=== PATIENT | female | born 1990 | race Asian ===

== ENCOUNTER 2017-07-27 15:47 | Outpatient (CLI) | payer OTHER ==
[2017-07-27 16:25] LABS: #Basophils 0.1 thou/uL (0.0-0.2); #Eosinphils 0.3 thou/uL (0.0-0.7); #Lymphocytes 2.7 thou/uL (1.20-3.40); #Monocytes 0.4 thou/uL (0.11-0.59); #Neutrophils 3.8 thou/uL (1.40-6.50); %Basophils 1.1 % (0.0-1.0); %Eosinophils 4.6 % (0.0-10.0); %Lymphocytes 37.5 % (21.0-51.0); %Monocytes 4.9 % (0.0-10.0); Hemoglobin 14.2 g/dL (12.0-16.0); Mean Corpuscular HGB CONC 33.7 g/dL (32.0-36.0); Mean Corpuscular Hemoglobin 31.2 pg (27.0-31.0); Mean Corpuscular Volume 92.4 fl (81.0-99.0); Mean Platelet Volume 6.4 fL (7.4-10.4); Platelet Count 290 thou/uL (130-400); Red Blood Cell (RBC) Count 4.56 mill/uL (4.20-5.40); White Blood Cell (WBC) Count 7.3 thou/uL (4.8-10.8)
[2017-07-27 16:53] LABS: BHCG - Serum Negative (NEGATIVE); Pregs Control Background? CLEAR/WHITE (CLR/WHITE); Pregs Control Bar Appear? YES (CONTROL BAR)
== END 2017-07-27 15:48 | disposition home or self-care (01) ==
LOC: LABBT 15:47
PROVIDERS: ATTEND Orthopaedic Surgery Hand Surgery
DX: Z01.812 Encounter for preprocedural laboratory examination (principal); R22.31 Localized swelling, mass and lump, right upper limb
CPT/HCPCS: 84703; 85025; 85652

== ENCOUNTER 2017-07-28 08:26 | Day surgery (SDC) | payer OTHER ==
[2017-07-27 16:08] VITALS: BMI 30.4
[2017-07-28] MEDS ORDERED: CEFAZOLIN/Water 2 GM/20 ML SYRINGE ONE (09:32)
[2017-07-28] MEDS ORDERED: Bacitracin Zinc Ointment 30 gm TUBE ONE (12:34)
[2017-07-28] MEDS ORDERED: Betamet Acet/Betamet Na Ph 30 MG/5 ML VIAL ONE (12:34)
[2017-07-28] MEDS ORDERED: Bupivacaine PF 0.5% 30 ML VIAL ONE (12:34)
[2017-07-28] MEDS ORDERED: Fentanyl 100 MCG/2 ML VIAL ONE (12:37)
[2017-07-28] MEDS ORDERED: Midazolam HCl 2 mg/2 ml Vial ONE (12:45)
[2017-07-28] MEDS ORDERED: Ketorolac Tromethamine 30 MG/ML VIAL ONE ×2 (14:10→16:46)
[2017-07-28] MEDS ORDERED: Ondansetron HCl/PF 4 MG/2 ML Vial ONE (16:46)
[2017-07-28] MEDS ORDERED: Lidocaine 1% PF 5 ML VIAL ONE (16:46)
[2017-07-28] MEDS ORDERED: Dexamethasone 20 MG/5 ML VIAL ONE (16:46)
[2017-07-28] MEDS ORDERED: PROPOFOL 200 MG/20 ML VIAL ONE (16:46)
--- NOTE | 2017-08-01 13:01 | OP ---
DATE OF SURGERY: 07/28/2017 PREOPERATIVE DIAGNOSIS: [place] kam foreign body with granuloma, right long finger. FINDINGS: 1. Right middle finger cactus kam, 2 cm long with no infection, but a granuloma tracked over the pa lmar aspect of the digit. 2. Granuloma cavity, approximately 1.5 cm x 3 mm. PROCEDURE PERFORMED: 1. Excision of cactus kam, right middle finger. 2. Removal of the granuloma, right middle finger. SPECIMEN: None. TOURNIQUET TIME: 5 minutes. ESTIMATED BLOOD LOSS: 2 mL. INDICATION: [place] kam barely palpable in the operating room, but felt to be present based on histo ry and physical exam and it was painful. SURGEON: Michael Payton MD ANESTHESIA: General LMA technique by [place] Anesthesia augmented by 10 mL 0.5% Marcaine metacarpop halangeal joint block level. DESCRIPTION OF PROCEDURE: After successful general LMA technique, the limb was prepped and draped. A time out was done appropriately. The limb was exsanguinated, tourniquet inflated to 250 mm pressur e and then we injected the metacarpophalangeal joint level of the middle phalanx to give a block. We waited 2 minutes and then made a zigzag Bonnie incision centered over the mass area and then dissec liset down to skin, subcutaneous tissue, and there was a mass. We then dissected out the mass along wi th a granuloma cavity incised in description as listed above and "findings". Released the tourniquet, obtained hemostasis. Irrigated the area with 300 mL normal saline on bulb s yringe pressure and then closed the wound with simple nylon sutures x4. The patient left the operati ng room without evidence of anesthetic operative complication and a bulky dressing.
== END 2017-07-28 14:55 | disposition home or self-care (01) ==
LOC: SDC 08:26
PROVIDERS: ATTEND Orthopaedic Surgery Hand Surgery
PROC: 0JBJ0ZZ Excision of Right Hand Subcutaneous Tissue and Fascia, Open Approach (ICD-10-PCS; principal; 2017-07-28)
DX: M60.241 Foreign body granuloma of soft tissue, not elsewhere classified, right hand (principal); F41.9 Anxiety disorder, unspecified; F17.210 Nicotine dependence, cigarettes, uncomplicated; Z18.89 Other specified retained foreign body fragments; Z79.899 Other long term (current) drug therapy; W60.XXXA Contact with nonvenomous plant thorns and spines and sharp leaves, initial encounter
CPT/HCPCS: 88300; J0131; J0702; J1100; J1885; J2001; J2250; J2405; J2704; J3010; S0020

== ENCOUNTER 2018-04-05 19:46 | Emergency (ER) | payer OTHER, SELFPAY | END 2018-04-05 20:42 | disposition home or self-care (01) | LOC: ERS 19:46 | DX: J30.9 Allergic rhinitis, unspecified (principal); Z87.891 Personal history of nicotine dependence | CPT/HCPCS: 87081; 87430; 99283 ==

== ENCOUNTER 2018-06-10 01:58 | Emergency (ER) | payer SELFPAY ==
[2018-06-10 02:35] LABS: Pregnancy Test - Urine (BHCG) POSITIVE (Negative); Pregu Control Background? CLEAR/WHITE (CLR/WHITE); Pregu Control Bar Appear? YES (CONTROL BAR)
[2018-06-10 02:38] LABS: Bilirubin Small (Negative); Blood, Urine Negative (Negative); Clarity CLEAR (Clear); Glucose, Urine (Dipstick) Negative (Negative); Leukocyte Negative (Negative); Nitrite Negative (Negative); Protein, Urine (Dipstick) Trace mg/dL (Neg-Trace); Specific Gravity, Urine 1.032 (1.002-1.036)
[2018-06-10 02:40] LABS: Specific Gravity 1.032 (1.002-1.036)
== END 2018-06-10 04:16 | disposition home or self-care (01) ==
LOC: ERS 01:58
DX: O99.89 Other specified diseases and conditions complicating pregnancy, childbirth and the puerperium (principal); R10.9 Unspecified abdominal pain; O99.341 Other mental disorders complicating pregnancy, first trimester; F41.9 Anxiety disorder, unspecified; F31.9 Bipolar disorder, unspecified; F43.10 Post-traumatic stress disorder, unspecified; F90.9 Attention-deficit hyperactivity disorder, unspecified type; F17.210 Nicotine dependence, cigarettes, uncomplicated; Z79.899 Other long term (current) drug therapy; Z3A.01 Less than 8 weeks gestation of pregnancy
CPT/HCPCS: 36415; 81003; 81025; 84702

== ENCOUNTER 2018-06-20 19:44 | Emergency (ER) | payer SELFPAY ==
[2018-06-20 21:52] LABS: #Eosinphils 0.3 thou/uL (0.0-0.7); #Lymphocytes 2.4 thou/uL (1.20-3.40); #Monocytes 0.4 thou/uL (0.11-0.59); #Neutrophils 3.5 thou/uL (1.40-6.50); %Basophils 0.6 % (0.0-1.0); %Eosinophils 4.1 % (0.0-10.0); %Lymphocytes 36.4 % (21.0-51.0); %Monocytes 5.8 % (0.0-10.0); %Neutrophils 53.1 % (42.0-75.0); Hemoglobin 12.8 g/dL (12.0-16.0); Mean Corpuscular HGB CONC 33.3 g/dL (32.0-36.0); Mean Corpuscular Hemoglobin 30.2 pg (27.0-31.0); Mean Corpuscular Volume 90.5 fL (78.0-98.0); Mean Platelet Volume 7.4 fL (7.4-10.4); Platelet Count 304 thou/uL (130-400); RBC Distribution Width 11.2 % (11.5-14.5); Red Blood Cell (RBC) Count 4.23 mill/uL (4.20-5.40); White Blood Cell (WBC) Count 6.5 thou/uL (4.8-10.8)
[2018-06-20 21:53] LABS: Bilirubin Negative (Negative); Blood, Urine Negative (Negative); Clarity CLOUDY (Clear); Glucose, Urine (Dipstick) Negative (Negative); Leukocyte Small (Negative); Nitrite Negative (Negative); Protein, Urine (Dipstick) Negative (Neg-Trace); Specific Gravity, Urine 1.015 (1.002-1.036); pH, Urine 7.5 (5.0-9.0)
[2018-06-20 21:56] LABS: Bacteria/HPF Rare-Few HPF (None Seen); Pathc Cast-AUWi Flag 3.05 (0-2.49)
[2018-06-20 22:06] LABS: Hyaline Casts/LPF NONE SEEN LPF (0-3 Hyaline)
--- NOTE | 2018-06-20 23:12 | ULT ---
PELVIC ULTRASOUND: 06/20/18 INDICATION: Pelvic pain. A transabdominal and an endovaginal ultrasound of pelvis performed. FINDINGS: The uterus is minimally enlarged. There is evidence of a gestational sac within the endometrial cavit y. The gestational sac size would indicate a 5 week, 1 day gestation. No evidence of pole. No e vidence of yolk sac. The ovaries are identified and appear unremarkable. Color doppler and spectral analysis demonstrates flow to both ovaries. IMPRESSION: Tiny cyst in the endometrial cavity could represent a very early gestational sac which measurements w ould indicate a 5 week, 1 day gestation. This is too early to identify pole or yolk sac. Recomm end followup serial HCG levels and followup pelvic ultrasound as indicated to confirm a normal pregna ncy progression. Ectopic with pseudogestational sac is not excluded at this time. POS: [facility]
== END 2018-06-20 23:35 | disposition home or self-care (01) ==
LOC: ERS 19:44
DX: O46.91 Antepartum hemorrhage, unspecified, first trimester (principal); O23.41 Unspecified infection of urinary tract in pregnancy, first trimester; O99.341 Other mental disorders complicating pregnancy, first trimester; F41.9 Anxiety disorder, unspecified; F31.9 Bipolar disorder, unspecified; F43.10 Post-traumatic stress disorder, unspecified; F90.9 Attention-deficit hyperactivity disorder, unspecified type; O99.331 Smoking (tobacco) complicating pregnancy, first trimester; Z3A.01 Less than 8 weeks gestation of pregnancy
CPT/HCPCS: 36415; 76856; 81003; 81015; 84702; 85025; 86900; 86901; 87086; 87480; 87491; 87510; 87591; 87660

== ENCOUNTER 2018-06-24 19:04 | Emergency (ER) | payer SELFPAY ==
[2018-06-24 19:35] LABS: #Basophils 0.1 thou/uL (0.0-0.2); #Eosinphils 0.2 thou/uL (0.0-0.7); #Lymphocytes 2.1 thou/uL (1.20-3.40); #Monocytes 0.4 thou/uL (0.11-0.59); #Neutrophils 4.7 thou/uL (1.40-6.50); %Basophils 1.1 % (0.0-1.0); %Eosinophils 2.7 % (0.0-10.0); %Lymphocytes 28.4 % (21.0-51.0); %Monocytes 4.8 % (0.0-10.0); Hemoglobin 14.7 g/dL (12.0-16.0); Mean Corpuscular HGB CONC 33.2 g/dL (32.0-36.0); Mean Corpuscular Hemoglobin 30.2 pg (27.0-31.0); Mean Corpuscular Volume 90.8 fL (78.0-98.0); Platelet Count 335 thou/uL (130-400); RBC Distribution Width 11.2 % (11.5-14.5); Red Blood Cell (RBC) Count 4.89 mill/uL (4.20-5.40); White Blood Cell (WBC) Count 7.4 thou/uL (4.8-10.8)
[2018-06-24 19:54] LABS: Bilirubin Negative (Negative); Blood, Urine Large (Negative); Clarity CLOUDY (Clear); Glucose, Urine (Dipstick) Negative (Negative); Leukocyte Negative (Negative); Nitrite Negative (Negative); Protein, Urine (Dipstick) Negative (Neg-Trace); Specific Gravity, Urine 1.012 (1.002-1.036); Urobilinogen 0.2 mg/dL (0.2-1.0); pH, Urine 7.5 (5.0-9.0)
[2018-06-24 19:56] LABS: Bacteria/HPF None Seen HPF (None Seen); Hyaline Casts/LPF 0-3 HYALINE CAST LPF (0-3 Hyaline); Pathc Cast-AUWi Flag 0.14 (0-2.49); Squamous Epithelial 0-3 HPF (0-3); WBC/HPF 0-3 HPF (0-3)
--- NOTE | 2018-06-24 21:33 | ULT ---
PELVIC ULTRASOUND: HISTORY: Vaginal bleeding. TECHNIQUE: Multiple longitudinal and transverse images of the pelvis are obtained using a Multi-Hertz endovagina l curvilinear transducer. FINDINGS: Real-time, color-flow, and spectral wave-form Doppler analysis demonstrates the uterus to be of morenita l contour, axis, and size, measuring 8.4 x 3.7 x 4.6 cm. No evidence of uterine masses or lesions se en. No evidence of an intrauterine seen. No evidence of a gestational sac or pole s een. Both ovaries visualized with no evidence of masses or lesions. The right ovary measures 3 x 2 x 1.8 cm, while the left ovary measures 2.9 x 1.8 x 1.8 cm. Good blood flow is seen in both ovaries. IMPRESSION: Normal pelvic ultrasound. No definite evidence of an intrauterine visualized. Good flow i s seen in both ovaries. No evidence of free pelvic fluid seen. POS: [facility]
== END 2018-06-24 21:20 | disposition home or self-care (01) ==
LOC: ERS 19:04
DX: O03.9 Complete or unspecified spontaneous abortion without complication (principal); F41.9 Anxiety disorder, unspecified; F31.9 Bipolar disorder, unspecified; F43.10 Post-traumatic stress disorder, unspecified; F90.9 Attention-deficit hyperactivity disorder, unspecified type; Z87.891 Personal history of nicotine dependence
CPT/HCPCS: 36415; 76856; 81003; 81015; 84702; 85025; 86900; 86901

== ENCOUNTER 2018-07-05 01:29 | Emergency (ER) | payer SELFPAY ==
[2018-07-05] MEDS ORDERED: Acetaminophen/Codeine 30-300mg Tablet ONE (04:37)
[2018-07-05 04:55] LABS: Bilirubin Small (Negative); Blood, Urine Negative (Negative); Glucose, Urine (Dipstick) Negative (Negative); Leukocyte Trace (Negative); Nitrite Negative (Negative); Protein, Urine (Dipstick) 30 mg/dL (Neg-Trace); Specific Gravity, Urine 1.025 (1.005-1.030); pH, Urine 6.5 (5.0-9.0)
[2018-07-05 04:56] LABS: Clarity Cloudy (Clear)
[2018-07-05 04:57] LABS: Bacteria/HPF None Seen HPF (None Seen)
[2018-07-05 05:00] LABS: Pathc Cast-AUWi Flag 36.82 (0-2.49)
[2018-07-05 05:08] LABS: Hyaline Casts/LPF 0-3 HYALINE CAST LPF (0-3 Hyaline); Other Casts/LPF None Seen LPF (0-3 Hyaline); Oval Fat Bodies/HPF None Seen HPF (None Seen); RBC/HPF 0-3 HPF (0-3); Renal Epithelial None Seen HPF (0-3); Sperm/HPF None Seen HPF (None Seen); Transitional Epithelial 0-3 HPF (0-3); Trichomonas/HPF None Seen HPF (None Seen); Yeast-All Forms None Seen HPF (None Seen)
[2018-07-05 05:09] LABS: #Basophils 0.1 thou/uL (0.0-0.2); #Eosinphils 0.4 thou/uL (0.0-0.7); #Lymphocytes 3.3 thou/uL (1.20-3.40); #Monocytes 0.4 thou/uL (0.11-0.59); #Neutrophils 3.7 thou/uL (1.40-6.50); %Basophils 1.1 % (0.0-1.0); %Eosinophils 4.6 % (0.0-10.0); %Lymphocytes 41.9 % (21.0-51.0); %Monocytes 5.2 % (0.0-10.0); %Neutrophils 47.3 % (42.0-75.0); Hemoglobin 13.2 g/dL (12.0-16.0); Mean Corpuscular HGB CONC 32.2 g/dL (32.0-36.0); Mean Corpuscular Hemoglobin 29.8 pg (27.0-31.0); Mean Corpuscular Volume 92.4 fL (78.0-98.0); Mean Platelet Volume 7.2 fL (7.4-10.4); Platelet Count 288 thou/uL (130-400); RBC Distribution Width 11.2 % (11.5-14.5); Red Blood Cell (RBC) Count 4.42 mill/uL (4.20-5.40); White Blood Cell (WBC) Count 7.9 thou/uL (4.8-10.8)
[2018-07-05 05:15] LABS: INR-International Normal Ratio 0.9; PTT 29.4 SEC (22.9-36.1); Prothrombin Time 12.3 SEC (12.0-14.7)
[2018-07-05 05:17] LABS: BHCG - Serum Negative (NEGATIVE); Pregs Control Background? CLEAR/WHITE (CLR/WHITE); Pregs Control Bar Appear? YES (CONTROL BAR)
[2018-07-05 05:29] LABS: ALT (SGPT) 11 U/L (8-55); AST (SGOT) 11 U/L (5-34); Albumin 4.2 g/dL (3.5-5.0); Alkaline Phosphatase 77 U/L (40-150); Anion Gap 11 mmol/L (10-20); BUN (Urea Nitrogen) 9 mg/dL (7.0-18.7); Bilirubin, Total 0.3 mg/dL (0.2-1.2); Calc. Creatinine Clearance 0 mL/min (70-130); Calcium 9.2 mg/dL (7.8-10.44); Carbon Dioxide 28 mmol/L (22-29); Chloride 107 mmol/L (98-107); Estimated GFR-MDRD 76; Globulin 2.8 g/dL (2.4-3.5); Glucose 112 mg/dL (70-105); Potassium 3.8 mmol/L (3.5-5.1); Sodium 142 mmol/L (136-145)
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
[2018-07-05] MEDS ORDERED: Lidocaine 1% PF 5 ML VIAL ONE (07:07)
[2018-07-05] MEDS ORDERED: cefTRIAXone\\ROCEPHIN 1 GM VIAL ONE (07:07)
[2018-07-05] MEDS ORDERED: Azithromycin 250 MG TAB ONE (07:07)
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
--- NOTE | 2018-07-05 07:51 | RAD ---
LEFT KNEE 4 VIEWS: HISTORY: Injury, left knee pain. FINDINGS: No fracture or dislocation is identified. POS: [facility]
[2018-07-05] MEDS ORDERED: ISOVUE-370 76%-LOCM 1 ML ONE (11:58)
[2018-07-07 23:47] LABS: Chlamydia by PCR DETECTED (NotDetected); GC by PCR Not Detected (NotDetected)
== END 2018-07-05 07:47 | disposition home or self-care (01) ==
LOC: ERS 01:29
DX: N89.8 Other specified noninflammatory disorders of vagina (principal); Y04.0XXA Assault by unarmed brawl or fight, initial encounter
CPT/HCPCS: 70450; 71260; 72125; 74177; 80053; 81003; 81015; 84703; 85025; 85610; 85730; 87086; 87480; 87491; 87510; 87591; 87660; 96372; J0696; J2001; Q9966

== ENCOUNTER 2018-10-09 22:48 | Emergency (ER) | payer SELFPAY ==
[2018-10-09] MEDS ORDERED: Lidocaine 1% w/Epinephrine 1:100K 20 ML VIAL ONE (23:28)
[2018-10-09] MEDS ORDERED: Bacitracin Zinc 1 Packet ONE (23:50)
[2018-10-10] MEDS ORDERED: Lidocaine 1% PF 5 ML VIAL ONE (00:10)
[2018-10-10] MEDS ORDERED: Azithromycin 250 MG TAB ONE (00:10)
[2018-10-10] MEDS ORDERED: cefTRIAXone\\ROCEPHIN 250 MG VIAL ONE (00:10)
[2018-10-10 00:23] LABS: Bilirubin Negative (Negative); Blood, Urine Negative (Negative); Clarity CLEAR (Clear); Glucose, Urine (Dipstick) Negative (Negative); Leukocyte Trace (Negative); Nitrite Negative (Negative); Pregnancy Test - Urine (BHCG) POSITIVE (Negative); Pregu Control Background? CLEAR/WHITE (CLR/WHITE); Pregu Control Bar Appear? YES (CONTROL BAR); Protein, Urine (Dipstick) Negative (Neg-Trace); Specific Gravity 1.014 (1.002-1.036); Specific Gravity, Urine 1.014 (1.002-1.036); pH, Urine 6.5 (5.0-9.0)
[2018-10-10 00:24] LABS: Bacteria/HPF None Seen HPF (None Seen); Hyaline Casts/LPF 4-6 HYALINE CAST LPF (0-3 Hyaline); Pathc Cast-AUWi Flag 1.35 (0-2.49); Squamous Epithelial 0-3 HPF (0-3); WBC/HPF 0-3 HPF (0-3)
[2018-10-13 00:53] LABS: Chlamydia by PCR Inconclusive (NotDetected); GC by PCR Inconclusive (NotDetected)
== END 2018-10-10 01:42 | disposition home or self-care (01) ==
LOC: ERS 22:48
DX: O9A.211 Injury, poisoning and certain other consequences of external causes complicating pregnancy, first trimester (principal); S30.851A Superficial foreign body of abdominal wall, initial encounter; O99.89 Other specified diseases and conditions complicating pregnancy, childbirth and the puerperium; Z20.2 Contact with and (suspected) exposure to infections with a predominantly sexual mode of transmission; O99.341 Other mental disorders complicating pregnancy, first trimester; F41.9 Anxiety disorder, unspecified; F31.9 Bipolar disorder, unspecified; F43.11 Post-traumatic stress disorder, acute; F90.9 Attention-deficit hyperactivity disorder, unspecified type; Z87.891 Personal history of nicotine dependence
CPT/HCPCS: 81003; 81015; 81025; 84702; 87480; 87491; 87510; 87591; 87660; 96360; 96372; J0696; J2001

== ENCOUNTER 2018-10-10 10:26 | Emergency (ER) | payer SELFPAY | END 2018-10-10 12:03 | disposition home or self-care (01) | LOC: ERS 10:26 | DX: Z32.01 Encounter for pregnancy test, result positive (principal) | CPT/HCPCS: 99281 ==

== ENCOUNTER 2019-03-21 23:27 | Day surgery (SDC) | payer OTHER ==
[2019-03-22] MEDS ORDERED: Acetaminophen 325 MG TAB PO SCH (00:45)
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
[2019-03-22 01:03] LABS: #Basophils 0.1 thou/uL (0.0-0.2); #Eosinphils 0.2 thou/uL (0.0-0.7); #Lymphocytes 2.8 thou/uL (1.20-3.40); #Monocytes 0.6 thou/uL (0.11-0.59); %Basophils 0.6 % (0.0-1.0); %Eosinophils 1.6 % (0.0-10.0); %Lymphocytes 20.6 % (21.0-51.0); %Monocytes 4.4 % (0.0-10.0); %Neutrophils 72.8 % (42.0-75.0); Hemoglobin 11.5 g/dL (12.0-16.0); Mean Corpuscular HGB CONC 33.4 g/dL (32.0-36.0); Mean Corpuscular Hemoglobin 29.2 pg (27.0-31.0); Mean Corpuscular Volume 87.4 fL (78.0-98.0); Mean Platelet Volume 7.1 fL (7.4-10.4); Platelet Count 303 thou/uL (130-400); RBC Distribution Width 11.4 % (11.5-14.5); Red Blood Cell (RBC) Count 3.94 mill/uL (4.20-5.40); White Blood Cell (WBC) Count 13.8 thou/uL (4.8-10.8)
[2019-03-22 01:24] LABS: ALT (SGPT) 14 U/L (8-55); AST (SGOT) 14 U/L (5-34); Albumin 3.4 g/dL (3.5-5.0); Alkaline Phosphatase 114 U/L (40-110); Anion Gap 9 mmol/L (10-20); BUN (Urea Nitrogen) 12 mg/dL (7.0-18.7); Bilirubin, Total 0.4 mg/dL (0.2-1.2); Calc. Creatinine Clearance 0 mL/min (70-130); Calcium 8.5 mg/dL (7.8-10.44); Carbon Dioxide 22 mmol/L (22-29); Chloride 110 mmol/L (98-107); Estimated GFR-MDRD Greater than 90; Globulin 3.4 g/dL (2.4-3.5); Glucose 83 mg/dL (70-105); Potassium 3.8 mmol/L (3.5-5.1); Protein, Total 6.8 g/dL (6.0-8.3); Sodium 137 mmol/L (136-145)
[2019-03-22 01:45] LABS: Bacteria/HPF None Seen HPF (None Seen); Bilirubin Negative (Negative); Blood, Urine 3+ (Negative); Clarity Clear (Clear); Glucose, Urine (Dipstick) Normal (Negative); Leukocyte 25 Leu/uL (Negative); Mucous/LPF Rare LPF (<2+); Nitrite Negative (Negative); Protein, Urine (Dipstick) 20 mg/dL (Neg-Trace); RBC/HPF Greater than 50 HPF (0-3); Squamous Epithelial 0-3 HPF (0-3); Urobilinogen Normal mg/dL (Less than 2); WBC/HPF 0-3 HPF (0-3)
[2019-03-22 01:50] LABS: Urine Culture Reflex No No
--- NOTE | 2019-03-22 08:04 | ULT ---
PRELIMINARY REPORT/[facility]/EMERGENCY AFTER HOURS PROCEDURE: PROCEDURE INFORMATION: Exam: US Retroperitoneal Complete. Exam date and time: 03/22/2019 12:59 AM Age: 28 years old Clinical history: Patient HX: 34 weeks with gross hematuria TECHNIQUE: Imaging protocol: Real-time ultrasound of the retroperitoneum with image documentation. Complete exam . COMPARISON: No relevant prior studies available. FINDINGS: Right kidney: No stones. No hydronephrosis. Left kidney: No stones. No hydronephrosis. Bladder: Bilateral ureteral jets present. IMPRESSION: No hydronephrosis. Thank you for allowing us to participate in the care of your patient. Dictated and Authenticated by: Kenn Chiu MD 03/22/2019 1:46 AM Central Time ([place] & [place]) FINAL REPORT I agree with the preliminary report provided. No hydronephrosis or focal renal lesion is evident. B ilateral ureteral jets are seen at the level of the bladder. POS: [facility]
[2019-03-22] MEDS ORDERED: FLU VACC QS2019-20(6MOS UP)/PF 60 MCG/0.5 ML SYRINGE IM ONE (21:00)
[2019-03-22 22:41] LABS: Chlamydia by PCR Not Detected (NotDetected); GC by PCR Not Detected (NotDetected)
== END 2019-03-22 02:49 | disposition home or self-care (01) ==
LOC: L&D/OP 23:27
PROVIDERS: ATTEND Family Medicine
DX: O99.89 Other specified diseases and conditions complicating pregnancy, childbirth and the puerperium (principal); M54.32 Sciatica, left side; R31.0 Gross hematuria; N36.8 Other specified disorders of urethra; O98.813 Other maternal infectious and parasitic diseases complicating pregnancy, third trimester; B37.9 Candidiasis, unspecified; O99.333 Smoking (tobacco) complicating pregnancy, third trimester; F17.200 Nicotine dependence, unspecified, uncomplicated; Z3A.33 33 weeks gestation of pregnancy
CPT/HCPCS: 36415; 76770; 80053; 81001; 85025; 87480; 87491; 87510; 87591; 87660; 99285